=== PATIENT | female | born 1950 | race Hispanic/Latino ===

== ENCOUNTER → 2018-10-28 | Outpatient (CLI) | payer MEDICARE | END | disposition home or self-care (01) | LOC: RAH 08:21 | PROVIDERS: ATTEND Internal Medicine | DX: Z12.31 Encounter for screening mammogram for malignant neoplasm of breast (principal) | CPT/HCPCS: 77067 ==

== ENCOUNTER 2021-11-09 13:12 | Inpatient (IN) | payer MEDICARE ==
[~2021-11-09] VITALS: Ht 149.9 cm; Wt 54.4 kg
[2021-11-09 14:00] LABS: BASOPHILS % (AUTO) 0.1 % (0.0-5.0); EOSINOPHILS % (AUTO) 0.5 % (0.0-8.0); HEMATOCRIT 35.2 % (36-48); LYMPHOCYTES % (AUTO) 14.6 % (21.0-51.0); MEAN CORPUSCULAR HGB CONC 32.4 g/dL (32.0-36.0); MEAN CORPUSCULAR VOLUME 80.2 fL (79-99); MONOCYTES % (AUTO) 5.4 % (3.0-13.0); NEUTROPHILS % (AUTO) 78.7 % (40.0-77.0); PLATELET COUNT (AUTO) 241 K/uL (130-400); RED BLOOD CELL COUNT(AUTO) 4.39 MIL/uL (4.00-5.50); RED CELL DISTRIBUTION WIDTH 14.5 % (11.0-15.5); WHITE BLOOD COUNT (AUTO) 14.9 K/uL (4.8-10.8)
[2021-11-09 14:02] LABS: APPEARANCE,URINE CLOUDY (CLEAR); BILIRUBIN,URINE NEGATIVE (NEGATIVE); COLOR,URINE LIGHT-YELLOW (YELLOW); GLUCOSE, URINE (UA) >=1000 mg/dL (NEGATIVE); KETONES,URINE 5 mg/dL (NEGATIVE); LEUKOCYTE ESTERASE ,URINE 500 Leu/uL (NEGATIVE); NITRATE,URINE 2+ (NEGATIVE); PROTEIN,URINE 300 mg/dL (NEGATIVE); UROBILINOGEN,URINE 0.2 mg/dL (0.2-1.0)
[2021-11-09 14:05] LABS: BACTERIA,URINE MANY /HPF (None Seen); MUCUS,URINE RARE LPF (None Seen); RENAL EPITHELIAL CELLS,URINE RARE /HPF (None Seen); SQUAMOUS EPITHELIAL CELL,UR RARE /HPF (0-2); TRANSITIONAL EPI CELLS,URINE RARE /HPF (None Seen); WBC,URINE TNTC /HPF (0-1)
[2021-11-09 14:50] LABS: ALBUMIN 2.7 g/dL (3.5-5.0); CREATININE 3.1 mg/dL (0.5-1.5); POTASSIUM 3.4 mmol/L (3.5-5.1)
[2021-11-09] MEDS ORDERED: INSULIN LISPRO 100 UNIT/ML 3ML SQ ONE (15:00)
[2021-11-09] MEDS ORDERED: 0.9%NACL 1000ML 1,000 ML IV ONE ×3 (15:00→18:30)
[2021-11-09] MEDS ORDERED: CEFTRIAXONE 1G VIAL IVP SCH (15:00)
[2021-11-09] MEDS ORDERED: KCL 20 MEQ ERTAB PO ONE (15:30)
[2021-11-09] MEDS ORDERED: TRAMADOL HCL 50 MG TABLET ONE (15:59)
[2021-11-09] MEDS ORDERED: TRAMADOL HCL 50 MG TABLET PO ONE (16:00)
[2021-11-09] MEDS ORDERED: ACETAMINOPHEN 325 MG TAB PO PRN (18:30)
[2021-11-09] MEDS ORDERED: LACTULOSE 20 GM/30 ML UDCUP PO PRN (18:30)
[2021-11-09] MEDS ORDERED: ONDANSETRON 4MG INJ IVP PRN (18:30)
[2021-11-09] MEDS: 0.9%NACL 1000ML 1,000 ML IV SCH (19:27)
[2021-11-09] MEDS: FAMOTIDINE 20MG TAB PO SCH (20:19)
[2021-11-09] MEDS: INSULIN HUMULIN R 100 UNIT/ML 3ML SQ SCH (20:22)
[2021-11-09 22:50] VITALS: BP 166/45
[2021-11-09] MEDS ORDERED: LISI40TA9 PO (23:41)
[2021-11-09] MEDS ORDERED: CARV25TA PO (23:41)
[2021-11-09] MEDS ORDERED: FURO40TA5 PO (23:42)
[2021-11-10] VITALS (8 sets, daily range): BP systolic 112–198; BP diastolic 30–74
[2021-11-10] MEDS: HYDRALAZINE 20MG/ML VIAL IV PRN ×2 (04:28→13:35)
[2021-11-10] MEDS: INSULIN HUMULIN R 100 UNIT/ML 3ML SQ SCH ×3 (06:27→16:56)
[2021-11-10] MEDS: 0.9%NACL 1000ML 1,000 ML IV SCH ×4 (06:40→21:48)
[2021-11-10 06:46] LABS: MEAN CORPUSCULAR HEMOGLOBIN 26.2 pg (27.0-33.0); MEAN CORPUSCULAR HGB CONC 32.8 g/dL (32.0-36.0); RED BLOOD CELL COUNT(AUTO) 4.5 MIL/uL (4.00-5.50); RED CELL DISTRIBUTION WIDTH 14.5 % (11.0-15.5); WHITE BLOOD COUNT (AUTO) 14.6 K/uL (4.8-10.8)
[2021-11-10 07:10] LABS: CREATININE 2.4 mg/dL (0.5-1.5); MAGNESIUM 1.6 mg/dL (1.80-2.40); PHOSPHORUS 3.3 mg/dL (2.5-4.9); POTASSIUM 3.1 mmol/L (3.5-5.1); THYROID STIMULATING HORMONE 0.45 uIU/mL (0.36-3.74)
[2021-11-10] MEDS: ASPIRIN 81MG CHEW TAB PO SCH (09:39)
[2021-11-10] MEDS: FOLIC ACID 1 MG TABLET PO SCH (09:39)
[2021-11-10] MEDS: FERROUS SULFATE 325 MG TABLET.DR PO SCH (09:39)
[2021-11-10] MEDS: ENOXAPARIN SODIUM 30 MG/0.3 ML SQ SCH (09:40)
[2021-11-10] MEDS: MEROPENEM 1 GM VIAL IVP SCH ×2 (13:34→21:44)
[2021-11-10] MEDS ORDERED: CEFTRIAXONE 2GM VIAL IVP SCH (16:00)
[2021-11-10] MEDS ORDERED: LIDOCAINE HCL-MPF 1% 2ML VIAL IV PRN (21:30)
[2021-11-10] MEDS ORDERED: MAGNESIUM 2GM PREMIX 50ML 50 ML IV PRN (21:30)
[2021-11-10] MEDS ORDERED: POTASSIUM CHLORIDE 10% ELIXIR 20 MEQ/15 ML UDCUP PO PRN (21:30)
[2021-11-10] MEDS ORDERED: INSULIN GLARGINE 100 UNITS/ML 10 ML VIAL SQ ONE (21:30)
[2021-11-10] MEDS: FAMOTIDINE 20MG TAB PO SCH (21:44)
[2021-11-11] VITALS (9 sets, daily range): BP systolic 116–211; BP diastolic 44–80
[2021-11-11 06:06] LABS: HEMATOCRIT 33.1 % (36-48); MEAN CORPUSCULAR HEMOGLOBIN 26.5 pg (27.0-33.0); MEAN CORPUSCULAR HGB CONC 32.6 g/dL (32.0-36.0); MEAN CORPUSCULAR VOLUME 81.1 fL (79-99); RED BLOOD CELL COUNT(AUTO) 4.08 MIL/uL (4.00-5.50); RED CELL DISTRIBUTION WIDTH 14.7 % (11.0-15.5); WHITE BLOOD COUNT (AUTO) 14.1 K/uL (4.8-10.8)
[2021-11-11 06:12] LABS: HEMOGLOBIN A1C 13.4 % (4.0-6.0)
[2021-11-11 06:13] LABS: CREATININE 2.3 mg/dL (0.5-1.5); MAGNESIUM 1.6 mg/dL (1.80-2.40)
[2021-11-11 06:24] LABS: POTASSIUM 2.6 mmol/L (3.5-5.1)
[2021-11-11] MEDS: INSULIN HUMULIN R 100 UNIT/ML 3ML SQ SCH ×4 (06:57→22:22)
[2021-11-11] MEDS: INSULIN GLARGINE 100 UNITS/ML 10 ML VIAL SQ SCH ×2 (06:58→22:24)
[2021-11-11] MEDS: POTASSIUM CHLORIDE 20MEQ/100ML 100 ML IV PRN ×2 (06:59→14:44)
[2021-11-11] MEDS: KCL 20 MEQ ERTAB PO PRN ×4 (07:06→17:01)
[2021-11-11] MEDS: ASPIRIN 81MG CHEW TAB PO SCH (07:45)
[2021-11-11] MEDS: ENOXAPARIN SODIUM 30 MG/0.3 ML SQ SCH (07:46)
[2021-11-11] MEDS: CLONIDINE HCL 0.1 MG TABLET PO PRN (07:46)
[2021-11-11] MEDS: AMLODIPINE 5 MG TAB PO SCH (07:46)
[2021-11-11] MEDS: FERROUS SULFATE 325 MG TABLET.DR PO SCH (07:46)
[2021-11-11] MEDS: FOLIC ACID 1 MG TABLET PO SCH (07:46)
[2021-11-11] MEDS: 0.9%NACL 1000ML 1,000 ML IV SCH ×2 (07:48→22:12)
[2021-11-11] MEDS: MEROPENEM 1 GM VIAL IVP SCH ×2 (11:17→22:12)
[2021-11-11] MEDS: FAMOTIDINE 20MG TAB PO SCH (22:12)
[2021-11-12 03:42] VITALS: BP 165/66
[2021-11-12] MEDS: 0.9%NACL 1000ML 1,000 ML IV SCH (04:40)
[2021-11-12 05:51] LABS: HEMATOCRIT 35.9 % (36-48); RED BLOOD CELL COUNT(AUTO) 4.43 MIL/uL (4.00-5.50); RED CELL DISTRIBUTION WIDTH 15.2 % (11.0-15.5); WHITE BLOOD COUNT (AUTO) 13.9 K/uL (4.8-10.8)
[2021-11-12 06:19] LABS: ALBUMIN 2.2 g/dL (3.5-5.0); CREATININE 1.5 mg/dL (0.5-1.5); MAGNESIUM 1.4 mg/dL (1.80-2.40); POTASSIUM 3.9 mmol/L (3.5-5.1); TOTAL PROTEIN, SERUM 5.8 g/dL (6.0-8.3)
[2021-11-12] MEDS: INSULIN HUMULIN R 100 UNIT/ML 3ML SQ SCH ×4 (06:35→19:59)
[2021-11-12] MEDS: INSULIN GLARGINE 100 UNITS/ML 10 ML VIAL SQ SCH ×2 (06:38→20:03)
[2021-11-12 08:01] VITALS: BP 173/69
[2021-11-12] MEDS: AMLODIPINE 5 MG TAB PO SCH (08:42)
[2021-11-12] MEDS: ASPIRIN 81MG CHEW TAB PO SCH (08:42)
[2021-11-12] MEDS: FOLIC ACID 1 MG TABLET PO SCH (08:42)
[2021-11-12] MEDS: FERROUS SULFATE 325 MG TABLET.DR PO SCH (08:42)
[2021-11-12] MEDS: HYDRALAZINE 25MG TABLET PO SCH ×2 (08:42→20:01)
[2021-11-12] MEDS: MEROPENEM 1 GM VIAL IVP SCH ×2 (08:44→20:01)
[2021-11-12] MEDS: ENOXAPARIN SODIUM 30 MG/0.3 ML SQ SCH (08:44)
[2021-11-12 12:00] VITALS: BP 187/65
[2021-11-12 16:00] VITALS: BP 162/67
[2021-11-12] MEDS: CLONIDINE HCL 0.1 MG TABLET PO PRN (16:12)
[2021-11-12 19:57] VITALS: BP 153/73
[2021-11-12] MEDS: FAMOTIDINE 20MG TAB PO SCH (20:01)
== END 2021-11-12 20:30 | DRG 312 ==
LOC: EDH 13:12 → EDHIP 18:27 → OBSVTOIN 18:27 → 3DH 21:54
PROVIDERS: ADMIT Internal Medicine Critical Care Medicine; ATTEND Internal Medicine Critical Care Medicine
DX: I95.1 Orthostatic hypotension (principal); E87.1 Hypo-osmolality and hyponatremia; N39.0 Urinary tract infection, site not specified; N17.9 Acute kidney failure, unspecified; E86.0 Dehydration; Z20.822 Contact with and (suspected) exposure to COVID-19; E11.65 Type 2 diabetes mellitus with hyperglycemia; B96.20 Unspecified Escherichia coli [E. coli] as the cause of diseases classified elsewhere; D50.9 Iron deficiency anemia, unspecified; E11.22 Type 2 diabetes mellitus with diabetic chronic kidney disease; E83.51 Hypocalcemia; E87.6 Hypokalemia; E88.09 Other disorders of plasma-protein metabolism, not elsewhere classified; I12.9 Hypertensive chronic kidney disease with stage 1 through stage 4 chronic kidney disease, or unspecified chronic kidney disease; W18.39XA Other fall on same level, initial encounter; N18.30 Chronic kidney disease, stage 3 unspecified; Z90.49 Acquired absence of other specified parts of digestive tract; Z86.73 Personal history of transient ischemic attack (TIA), and cerebral infarction without residual deficits; Z83.3 Family history of diabetes mellitus; Z82.49 Family history of ischemic heart disease and other diseases of the circulatory system; Y93.89 Activity, other specified; Y92.89 Other specified places as the place of occurrence of the external cause; Y99.8 Other external cause status
CPT/HCPCS: 36415; 70450; 71045; 74176; 80048; 80053; 81001; 82010; 82550; 82948; 83036; 83605; 83615; 83735; 83874; 83880; 84100; 84145; 84443; 84484; 85025; 85027; 87077; 87088; 87186; 87635; 93005; 93306; 93356; 93880; 97039; C9803; G0378; J0360; J0696; J1650; J1815; J2185; J3480; J7030